=== PATIENT | female | born 1975 | race Hispanic/Latino ===

== ENCOUNTER 2022-01-03 19:06 | Emergency (ER) | payer BC ==
[2022-01-03] MEDS ORDERED: Lidocaine 5% Patch TD SCH (21:00)
== END 2022-01-03 21:15 | disposition home or self-care (01) ==
LOC: CSHERS 19:06
DX: M54.50 Low back pain, unspecified (principal); E11.9 Type 2 diabetes mellitus without complications; I10 Essential (primary) hypertension; Z79.84 Long term (current) use of oral hypoglycemic drugs
CPT/HCPCS: 99283